=== PATIENT | male | born 1960 | race Caucasian/White ===

== ENCOUNTER 2020-03-26 13:36 | Outpatient (REF) | payer MEDICARE, MEDICAID, SELFPAY | END 2020-03-26 13:37 | disposition home or self-care (01) | LOC: HO.BBR 13:36 | PROVIDERS: PCP Internal Medicine; Visit Provider Internal Medicine | DX: E83.110 Hereditary hemochromatosis (principal) | CPT/HCPCS: 99195 ==

== ENCOUNTER 2020-09-27 13:35 | Outpatient (REF) | payer MEDICARE, MEDICAID, SELFPAY | END 2020-09-27 13:36 | disposition home or self-care (01) | LOC: HO.BBR 13:35 | PROVIDERS: Visit Provider Internal Medicine | DX: Z13.89 Encounter for screening for other disorder (principal) ==